=== PATIENT | male | born 1970 | race Caucasian/White ===

== ENCOUNTER 2018-11-21 14:11 | Emergency (ER) | payer BC ==
[~2018-11-21] VITALS: Ht 177.8 cm; Wt 99.8 kg
[2018-11-21] MEDS ORDERED: LABETALOL HCL 20 ML ONE ×2 (15:05→17:32)
[2018-11-21] MEDS ORDERED: LABETALOL HCL 5 MG/ML 20ML VIAL IV STA (15:09)
--- NOTE | 2018-11-21 15:16 | Diagnostic Imaging Report ---
CT BRAIN -[facility] HISTORY: Headache COMPARISON: None. TECHNIQUE: Noncontrast axial scans were obtained from skull base to the vertex. Coronal and sagittal reconstructions obtained from the axial data. One or more of the following dose reduction techniques were used: Automated exposure control, adjustment of the mA and/or kV according to patient size, and/or utilization of iterative reconstruction technique. DISCUSSION: Scalp/Skull: Unremarkable. Brain sulci: Mildly prominent. Ventricles: Compensatory dilatation. Extra-axial spaces: No masses or fluid collections. Parenchyma: Mild to moderate bilateral deep white matter hypodensity is likely chronic microvascular ischemic change. Otherwise, no masses, hemorrhage, or large vascular territory acute infarct. Dural sinuses: No abnormal densities. Sellar/Suprasellar region: Intact. Skull base: Intact. Incidental findings: Mild left posterior ethmoid air cell mucosal thickening IMPRESSION: 1. No acute intracranial abnormalities. 2. Mild to moderate supratentorial chronic microvascular ischemic change. Mild generalized cerebral volume loss. Signed by: Dr. David Blackman M.D. on 11/21/2018 3:12 PM
--- NOTE | 2018-11-21 15:17 | Diagnostic Imaging Report ---
EXAMINATION: CXR 1 W - HOP INDICATION: Hypertension COMPARISON: None FINDINGS: LINES/TUBES:None LUNGS:The lungs are well-inflated. No focal consolidation or pulmonary edema. PLEURA:No pleural effusion or pneumothorax. MEDIASTINUM:The cardiomediastinal silhouette appears normal in size and shape. Atherosclerotic calcifications of the tortuous thoracic aorta. BONES/SOFT TISSUES:No acute osseous injury. ABDOMEN:No free air under the diaphragm. IMPRESSION: No focal pneumonia or pulmonary edema. Signed by: Yan Bradshaw MD on 11/21/2018 3:14 PM
--- NOTE | 2018-11-21 15:43 | NUR ---
INTIATED TRANSFER TO [facility] ON [facility] AT THIS TIME
--- NOTE | 2018-11-21 15:47 | NUR ---
INITIATED TRANSFER TO [facility] ON [facility] [place] OPEN AND ACCEPTED
--- NOTE | 2018-11-21 16:00 | NUR ---
PT TO BE TRANSFERED, PT AND FAMILY AWARE OF POC, VITAL SIGNS STABLE, PT VOICES NO COMPLAINTS AT THIS TIME.
--- NOTE | 2018-11-21 17:20 | NUR ---
[facility] CALLED FOR TRANSFER 30MIN ETA
[2018-11-21] MEDS ORDERED: LABETALOL HCL 20 MG/4 ML SYRINGE IV ONE (17:30)
[2018-11-21 17:39] VITALS: BP 203/120
== END 2018-11-21 17:50 | disposition other institution (70) ==
LOC: FSED 14:11
DX: H53.9 Unspecified visual disturbance (principal); G45.9 Transient cerebral ischemic attack, unspecified; I10 Essential (primary) hypertension
CPT/HCPCS: 36415; 70450; 71045; 80053; 82553; 83880; 84484; 85025; 93005; 99284; J3490